=== PATIENT | male | born 1980 | race Caucasian/White ===

== ENCOUNTER 2017-10-06 11:21 | Emergency (ER) | payer OTHER ==
[~2017-10-06] VITALS: Ht 177.8 cm; Wt 79.1 kg
[2017-10-06 11:28] VITALS: BP 145/80; TEMP 94.9
[2017-10-06] MEDS ORDERED: PERCOCET 325 MG1 TA2 PO (12:46)
[2017-10-06 13:34] VITALS: PULSE 67
== END 2017-10-06 13:20 | disposition home or self-care (01) ==
LOC: COL.ER 11:21
DX: S82.201A Unspecified fracture of shaft of right tibia, initial encounter for closed fracture (principal); Z98.890 Other specified postprocedural states; V29.9XXA Motorcycle rider (driver) (passenger) injured in unspecified traffic accident, initial encounter; Y92.410 Unspecified street and highway as the place of occurrence of the external cause
CPT/HCPCS: J1885; L1846